=== PATIENT | male | born 1950 | race Caucasian/White ===

== ENCOUNTER 2019-09-26 22:23 | Observation (INO) | payer MEDICARE ==
[2019-09-26] MEDS ORDERED: Ondansetron PF 4 MG/2 ML Vial IVP PRN (23:44)
[2019-09-26] MEDS ORDERED: Morphine 4 MG/ML VIAL SLOW IVP PRN (23:47)
[2019-09-26] MEDS ORDERED: Sodium Chloride 0.9% 1,000 ML IV SCH (23:59)
--- NOTE | 2019-09-27 00:08 | PDOC.EVN ---
Event Note - Event Note Event Note: [id number] HP
--- NOTE | 2019-09-27 01:53 | HP ---
CHIEF COMPLAINT: Right flank pain. HISTORY OF PRESENT ILLNESS: Mr. Quintana is a 69-year-old male with past medical history of coronary artery disease, coronary artery bypass graft surgery, cardiac arrhythmias, kidney stones, presents to the emergency room with right flank pain. The patient initially was evaluated at [place] [facility]. The patient reports that symptoms are similar to previous events when he had kidney stones. The patient was given Dilaudid with improvement in symptoms. The patient is being transferred for urology consultation and further management. PAST MEDICAL HISTORY: 1. Kidney stones. 2. Coronary artery disease. 3. Cardiac arrhythmias. 4. Sleep apnea. 5. Gout. PAST SURGICAL HISTORY: 1. Coronary artery bypass graft surgery times x5. 2. Right knee replacement x3. 3. Melanoma. 4. Tooth abscess. SOCIAL HISTORY: Denies alcohol drinking or smoking history. ALLERGIES: NO KNOWN ALLERGIES. HOME MEDICATIONS: Please see home medication reconciliation form for updated medications. REVIEW OF SYSTEMS: Review of 14 systems is negative except what is mentioned in the history of present illness. PHYSICAL EXAMINATION: GENERAL: The patient is awake, alert, in moderate distress. VITAL SIGNS: Blood pressure is 157/83, pulse is 83, respiratory rate is 18, temperature 98.1. HEAD AND NECK: Normocephalic, atraumatic. NECK: Supple. No JVD. CHEST: Fair bilateral air entry. HEART: S1, S2. Regular. ABDOMEN: Obese, soft. Bowel sounds present. NEUROLOGIC: Awake, alert, oriented x3. No focal findings. PSYCH: Unable to assess. GENITOURINARY: There is right flank tenderness. LABORATORY DATA: Urinalysis is unremarkable. Sodium is 140. BUN is 12, creatinine 1.2, glucose 142. Troponin less than 0.01. WBC count is 10.4, hemoglobin 14.4, platelets 252. CT abdomen and pelvis showed 6-7 mm proximal right ureteral calculus resulting in minimal right hydronephrosis. ASSESSMENT: Mr. Quintana is a 69-year-old male with history of kidney stones, coronary artery disease, arrhythmias, sleep apnea, presenting with right flank pain. 1. Right ureteral stone. 2. Right hydronephrosis. 3. Coronary artery disease with history of coronary artery bypass graft surgery. 4. Cardiac arrhythmias. 5. Sleep apnea. 6. Gout. PLAN: 1. Admit. 2. Keep the patient n.p.o. for now. 3. IV fluids. 4. Pain management. 5. Urology is consulted for evaluation of further management. 6. Reconcile home medications. 7. DVT prophylaxis, early ambulation. 8. Expected length of stay, one midnight if the patient is stable and cleared by Urology. Job ID: [id number]
[2019-09-27 02:24] VITALS: BMI 35.9
[2019-09-27 04:04] VITALS: TEMP 98.2
[2019-09-27 04:33] LABS: Anion Gap 14 mmol/L (10-20); BUN (Urea Nitrogen) 14 mg/dL (8.4-25.7); Calc. Creatinine Clearance 96 mL/min (70-130); Calcium 8.5 mg/dL (7.8-10.44); Carbon Dioxide 21 mmol/L (23-31); Chloride 107 mmol/L (98-107); Estimated GFR-MDRD 63; Glucose 120 mg/dL (80-115); Potassium 4.4 mmol/L (3.5-5.1); Sodium 138 mmol/L (136-145)
[2019-09-27 06:50] VITALS: BP 102/58
[2019-09-27] MEDS ORDERED: Calcium Carbonate 500 MG ChewTAB PO PRN (07:47)
[2019-09-27] MEDS ORDERED: Senokot S 8.6-50 MG TAB PO PRN (07:47)
[2019-09-27] MEDS ORDERED: HYDROcodone/Acetaminophen 5/325 mg Tablet PO PRN (07:47)
[2019-09-27] MEDS ORDERED: Ondansetron ODT 4 MG TAB PO PRN (07:47)
[2019-09-27] MEDS ORDERED: Acetaminophen 325 MG TAB PO PRN (07:47)
[2019-09-27] MEDS ORDERED: Iothalamate Meglumine 60% 50 ML VIAL FS ONE (08:30)
[2019-09-27] MEDS ORDERED: Fentanyl 100 MCG/2 ML VIAL ONE ×4 (08:33→09:06)
--- NOTE | 2019-09-27 08:33 | RAD ---
EXAM: XR Abdomen 1 View/KUB PROVIDED CLINICAL HISTORY: Preop COMPARISON: None FINDINGS: Visualized lung bases appear clear. Curvilinear density overlying the medial left upper abdomen may r eflect material external to the patient. The abdominal bowel gas pattern is nonspecific. 5 mm calcification overlies the right midabdomen lateral to the right L3 transverse process. No additional potential urinary tract calculi are evident. The osseous structures demonstrate no concerning abnormality. IMPRESSION: 5 mm right abdominal calculus
[2019-09-27] MEDS ORDERED: Ondansetron HCl/PF 4 MG/2 ML Vial IVP PRN (08:44)
[2019-09-27] MEDS ORDERED: Levofloxacin 500 mg/D5W 100 ml Premix Bag ONE (08:57)
[2019-09-27] MEDS ORDERED: FLU VACC TS2019-20(65YR UP)/PF 180 MCG/0.5 ML SYRINGE IM ONE (09:00)
--- NOTE | 2019-09-27 09:32 | CON ---
DATE OF CONSULTATION: PRIMARY UROLOGIST: [facility], Dr. Aki Lester. REASON FOR CONSULT: Intractable right flank pain due to right proximal ureteral calculi. HISTORY OF PRESENT ILLNESS: Mr. Quintana is a 69-year-old male with past medical history of coronary artery disease and recurrent kidney stone, presented to [facility] Emergency Room due to acute onset of right flank pain, intractable. He was subsequently transitioned to [facility] for higher level of care as there is no urologist on-call in [facility]. He relates the pain started about 3 days ago, with no fever. He has recently seen his urologist, and was observed with renal ultrasound, KUB demonstrating nonobstructing bilateral kidney stones. He has a 24-hour urine workup pending. Family is at bedside. Currently having acute renal colicky discomfort. He was provided Dilaudid at [facility] and labs are grossly unremarkable. PAST MEDICAL HISTORY: Recurrent kidney stones, coronary artery disease, history of arrhythmia, sleep apnea, and gout. PAST SURGICAL HISTORY: Status post CABG, right knee replacement, melanoma, and tooth abscess. SOCIAL HISTORY: Denies illicit drug use or smoking history. ALLERGIES: NO KNOWN DRUG ALLERGIES. CURRENT MEDICATIONS: Include; 1. Tums. 2. Tylenol. 3. Trail 5/325. 4. Morphine. 5. Zofran. 6. Senokot. REVIEW OF SYSTEMS: Ten-point review of systems as above, otherwise noncontributory. PHYSICAL EXAMINATION: VITAL SIGNS: His vital signs are stable. He is afebrile. GENERAL: The patient is in acute distress due to right renal colicky discomfort. HEENT: Grossly unremarkable. HEART: Regular rate. LUNGS: Clear. ABDOMEN: Morbidly obese, protuberant. No rigidity. No rebound. Right flank pain appreciated. : Uncircumcised meatus is grossly unremarkable. Testes are descended. EXTREMITIES: No cyanosis, clubbing, or edema. PERTINENT LABORATORY DATA: Creatinine is 1.1. UA from [facility] is grossly unremarkable. CT stone protocol at [facility], which I reviewed myself, demonstrates bilateral punctate renal lithiasis, there is a right L2 ureteral calculi, 7 mm with hydronephrosis. KUB today demonstrates L3 calcific density. IMPRESSION AND PLAN: Mr. Quintana is a 69-year-old male with history of recurrent kidney stones followed by Dr. Lester by [facility]. CT results as well as KUB was reviewed. Indications for ureteral stent reviewed due to intractable pain and he desired to proceed. I informed the patient that after stent, will observe him for resolution of discomfort and can be discharged either today or tomorrow and follow up with his urologist for ureteroscopy and laser lithotripsy versus ESWL. Job ID: [id number] MTDD
[2019-09-27] MEDS ORDERED: Phenazopyridine HCl 97.5 MG TABLET PO PRN (09:55)
[2019-09-27] MEDS ORDERED: Acetaminophen 500 MG TAB PO PRN (09:55)
--- NOTE | 2019-09-27 09:57 | RAD ---
Retrograde Polygram: HISTORY: Right stent placement FINDINGS: 3 portable fluoroscopic spot images are performed. Planning Analyst film demonstrates a proximal right ureteral calculus. Contrast is injected in the right ureter and upper collecting system and a follow-up right ureteral stent placed. IMPRESSION: Right ureteral stent placement.
[2019-09-27] MEDS ORDERED: cefTRIAXone\\ROCEPHIN 2 GM in Sodium Chloride 0.9% 100 ML IVPB SCH (10:00)
--- NOTE | 2019-09-27 10:15 | OP ---
DATE OF PROCEDURE: 09/27/2019 PREOPERATIVE DIAGNOSIS: Right 7 mm proximal ureteral calculi with intractable flank pain. POSTOPERATIVE DIAGNOSIS: Right 7 mm proximal ureteral calculi with intractable flank pain. PROCEDURES PERFORMED: Cystoscopy, right retrograde pyelogram, 6 x 28 double-J ureteral stent placement. ANESTHESIA: LMA. COMPLICATIONS: None apparent. DISPOSITION: To recovery room in stable condition. DESCRIPTION OF PROCEDURE: The patient was taken to the operating room, placed in a dorsal lithotomy position. Bilateral SCDs, broad-spectrum antibiotics were provided. The genital area was formally prepped and draped. A 21-Kiswahili cystoscope was utilized for cystoscopy, which demonstrated normal anterior urethra. Prostatic urethra demonstrated trilobar hyperplasia of the prostate moderately obstructing. There was a small intravesical median lobe. Bladder is grossly unremarkable. The right UO was identified in normal orthotopic position and an open-ended catheter was intubated. Using 1:1 diluted contrast, we performed a retrograde pyelogram demonstrating the stone in the right L2-3 ureter. A 0.035 Sensor wire was able to be placed without difficulty and a 6 x 28 double-J ureteral stent placed with ease. He tolerated the procedure well and transported to the recovery room in stable condition. The patient can be observed today. If pain is adequately controlled , he can be discharged with pain medication, broad-spectrum antibiotic therapy such as ciprofloxacin for a course of 7 days, Flomax, Azo p.r.n. He has a urologist that he is close to followup with, recommend follow up with his primary urologist for definitive stone surgery. Job ID: [id number] [facility]OS[facility]ITAL[facility]li
[2019-09-27] MEDS ORDERED: Lidocaine 1% PF 5 ML VIAL ONE (11:16)
[2019-09-27] MEDS ORDERED: PROPOFOL 200 MG/20 ML VIAL ONE (11:16)
[2019-09-27] MEDS ORDERED: Dexamethasone 20 MG/5 ML VIAL ONE (11:16)
[2019-09-27] MEDS ORDERED: Ondansetron PF 4 MG/2 ML Vial ONE (11:16)
--- NOTE | 2019-09-27 13:49 | DIS ---
DATE OF ADMISSION: 09/26/2019 DATE OF DISCHARGE: 09/27/2019 DISCHARGE DISPOSITION: Home. FOLLOWUP: Followup with primary urologist as scheduled. The patient was seen and examined on the day of discharge. Denies any new complaints. No chest pain, shortness of breath, or palpitations reported. DISCHARGE MEDICATIONS: Ciprofloxacin 500 mg twice daily for 1 week. Please note that the patient declined Flomax. He has [place] at home. He was advised to take Azo as needed. All other home medications were left unchanged. He was advised to clarify with his primary urologist on aspirin. ALLERGIES: THE PATIENT IS ALLERGIC TO TORADOL, FLOMAX, RAMIPRIL, AND VANADIUM. BRIEF HOSPITAL COURSE: The patient is a 69-year-old male, who presented to [facility] with intractable flank pain. His workup at [facility] was consistent with right ureteral calculi causing hydronephrosis. He was evaluated by Urology, Dr. Trejo. He underwent cystoscopy with 6 x 28 double-J ureteral stent placement. He was placed on IV antibiotics, which will be switched to ciprofloxacin at discharge. He was advised to follow up with his urologist next week. He will be discharged later today if stable. FINAL DIAGNOSES: 1. Right ureteral calculi causing right-sided hydronephrosis. 2. Coronary artery disease, status post coronary artery bypass grafting. 3. Obstructive sleep apnea, on CPAP. 4. Gout. 5. Hypothyroidism. 6. Hyperlipidemia. 7. Obesity with a BMI of 35.9. 8. Chronic kidney disease, stage 3. ALLERGIES: TO FLOMAX AND RAMIPRIL. PLAN: Plan of care was discussed with the patient in detail. He stated understanding. Job ID: [id number]
[2019-09-27] MEDS ORDERED: Docusate 100 MG CAP PO SCH (21:00)
[2019-09-27] MEDS ORDERED: Atorvastatin Calcium 40 MG TAB PO SCH (21:00)
[2019-09-28] MEDS ORDERED: Levothyroxine Sodium 50 MCG TAB PO SCH (06:00)
[2019-09-28] MEDS ORDERED: Tamsulosin HCl 0.4 MG CAP PO SCH (09:00)
[2019-09-28] MEDS ORDERED: Allopurinol 300 MG TAB PO SCH (09:00)
== END 2019-09-27 15:19 | disposition home or self-care (01) ==
LOC: ERS 22:23 → SURG B 23:40
PROVIDERS: ADMIT Internal Medicine; ATTEND Internal Medicine
PROC: 0T768DZ Dilation of Right Ureter with Intraluminal Device, Via Natural or Artificial Opening Endoscopic (ICD-10-PCS; principal; 2019-09-27)
DX: N13.2 Hydronephrosis with renal and ureteral calculous obstruction (principal); I25.10 Atherosclerotic heart disease of native coronary artery without angina pectoris; G47.33 Obstructive sleep apnea (adult) (pediatric); E03.9 Hypothyroidism, unspecified; E66.9 Obesity, unspecified; E78.5 Hyperlipidemia, unspecified; N18.3 Chronic kidney disease, stage 3 (moderate); Z68.35 Body mass index [BMI] 35.0-35.9, adult; Z79.82 Long term (current) use of aspirin; Z79.899 Other long term (current) drug therapy; Z88.8 Allergy status to other drugs, medicaments and biological substances; Z95.1 Presence of aortocoronary bypass graft; Z99.89 Dependence on other enabling machines and devices
CPT/HCPCS: 52332; 74018; 74420; 80048; 96360; 96361; 99285; G0378; 36415; J0131; J1100; J1956; J2001; J2405; J2704; J3010